=== PATIENT | male | born 1940 | race Caucasian/White ===

== ENCOUNTER 2021-04-15 12:03 | Outpatient (CLI) | payer MEDICARE | END 2021-04-15 12:04 | disposition home or self-care (01) | LOC: TBSIIMAG 12:03 | PROVIDERS: ATTEND Neurological Surgery | DX: M47.12 Other spondylosis with myelopathy, cervical region (principal); M50.00 Cervical disc disorder with myelopathy, unspecified cervical region; M48.02 Spinal stenosis, cervical region; M43.22 Fusion of spine, cervical region | CPT/HCPCS: 72141 ==

== ENCOUNTER 2021-11-27 09:53 | Outpatient (CLI) | payer MEDICARE | END 2021-11-27 09:54 | disposition home or self-care (01) | LOC: BICCT 09:53 | PROVIDERS: ATTEND Orthopaedic Surgery | DX: S72.22 Displaced subtrochanteric fracture of left femur (principal); T84.195A Other mechanical complication of internal fixation device of left femur, initial encounter ==

== ENCOUNTER 2023-05-22 07:19 | Outpatient (CLI) | payer MEDICARE ==
[2023-05-22] MEDS ORDERED: Iopamidol 370 76% 100 ML VIAL ONE (15:02)
== END 2023-05-22 07:20 | disposition home or self-care (01) ==
LOC: CT 07:19
PROVIDERS: ATTEND Physician Assistant Medical
DX: R19.7 Diarrhea, unspecified (principal); K80.20 Calculus of gallbladder without cholecystitis without obstruction; M47.819 Spondylosis without myelopathy or radiculopathy, site unspecified; R19.5 Other fecal abnormalities; K44.9 Diaphragmatic hernia without obstruction or gangrene
CPT/HCPCS: 74177; 82565

== ENCOUNTER 2023-07-09 10:43 | Outpatient (CLI) | payer MEDICARE | END 2023-07-09 10:44 | disposition home or self-care (01) | LOC: LABBT 10:43 | PROVIDERS: ATTEND Orthopaedic Surgery Hand Surgery | DX: Z01.810 Encounter for preprocedural cardiovascular examination (principal); G56.03 Carpal tunnel syndrome, bilateral upper limbs | CPT/HCPCS: 93005; 93010 ==

== ENCOUNTER 2024-04-07 08:47 | Outpatient (CLI) | payer MEDICARE | END 2024-04-07 08:48 | disposition home or self-care (01) | LOC: BICCT 08:47 | PROVIDERS: ATTEND Internal Medicine | DX: K26.9 Duodenal ulcer, unspecified as acute or chronic, without hemorrhage or perforation (principal); K86.89 Other specified diseases of pancreas; K59.09 Other constipation; K22.70 Barrett's esophagus without dysplasia; K86.2 Cyst of pancreas; K76.0 Fatty (change of) liver, not elsewhere classified; K80.20 Calculus of gallbladder without cholecystitis without obstruction | CPT/HCPCS: 36415; 74177; 82565 ==